=== PATIENT | female | born 1985 | race Caucasian/White ===

== ENCOUNTER 2023-08-24 10:00 | Outpatient (RCR) | payer OTHER, SELFPAY ==
--- NOTE | 2023-10-19 13:02 | PT.OPEX ---
PT [facility] Out[facility] Eval PT [facility] Outpatient Eval Start: 07/27/23 07:56 Freq: Status: Active Protocol: Document 07/27/23 07:58 EMMANUEL (Rec: 07/27/23 07:59 EMMANUEL [id number]) E-signed By Keyana Beckwith PT Physical Therapy Outpatient Evaluation Insurance Information Insurance Name [employer] Medical Diagnosis Stress UI Treating Diagnosis ZOILA lack of muscle coordination Referring ALMA ROSA Prather Subjective Subjective Manuela () presents with diagnosis of ZOILA. Pt started to notice issues with PF weakness after the of her 2nd child in 2016. Pt has noticed increasing weakness over time with majority of her issues/concerns occurring over the past year. Her UI symptoms include leaking with running, jumping, working out, and with an intense sneeze. Does have urinary urges with showering and with leung in the door. Urinates more frequent than every 2 hours. Her bowel function overall is good including daily BMs and ability to fully empty her bowel. Sexual function is also good. Pt does report perimenopausal symptoms including night sweats and heavier menses. Also has issues with vaginal gas while doing yoga (open hip position) . Goals for therapy include strengthening her PFM and to reduce ZOILA symptoms. 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 Assessment Assessment/Impression 38 yo client presents with ZOILA . Pt stands with an ant pelvic tilt. Asymmetry is present along B ilium (R ant), L FRS at L4-L5, and L sacral torsion. Trunk AROM is WFL in all planes. B hip PROM is WFL in B LEs. Mild tightness present with B FABERs - no pain. Tightness is present in R hip flexor. Pain and high tone present with palpation of L iliacus and psoas. Weakness present in B gluteal. Does have difficulty with firing lower abdominals. Symmetrical rib angles with ability diaphragmatically breath. Did not have time to complete assessment of her PF today. Plan is to finish assessment at her next session . Will continue with further skilled PT services including use of therapeutic exercise, therapeutic activities, neuromuscular re-ed, manual therapy, and self cares for symptom reduction. Plan of Care Rehabilitation Potential Good Physical Therapy Goals Short term goals to be achieved in 4 weeks 1. Able to state 4 of 4 urge suppression/bladder retraining strategies to reduce episodes of JIC and leung in the door voiding 2. Able to report voiding intervals of 1X every 2-4 hours, 70% of the time. 3. Pt will demonstrate use of functional PFM/precontraction to eliminate UI during intense sneezing. 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 1. Independent with self-care/ home program to allow for reduction in her UI symptoms and vaginal gas with activities/fitness routine. 2. Pt will report no leaking with sneezing, and jumping. 3. Pt will be able to demonstrate proper mechanics with lifting/carrying, including ability to manage IAP, to reduce pressure on PF with work related activities. Coordination/Communication With Referral Source Treatment Plan/Direct Interventions Joint Mobilization,Manual Therapy,Neuromuscular Re-ed, Self-Care/Home Management, Therapeutic Activities, Therapeutic Exercises Frequency/Duration 1 time a week for up to 12 visits Patient Will Be Discharged From Therapy Completion of LTG(s),Skills Plateau,Independent w/HEP, Independently Progressing Evaluation Billing Untimed Code Treatment Minutes 35 Complexity Moderate Certification Information Physician Comment/Change : Physician NPI Number #
== END 2023-12-22 23:59 | disposition home or self-care (01) ==
PROVIDERS: PCP Student in an Organized Health Care Education/Training Program; Visit Provider Student in an Organized Health Care Education/Training Program
DX: N39.3 Stress incontinence (female) (male) (principal); R27.8 Other lack of coordination; Z51.89 Encounter for other specified aftercare
CPT/HCPCS: 97110; 97140; 97162; 97535

== ENCOUNTER 2024-04-09 11:53 | Emergency (ER) | payer BC, SELFPAY ==
--- OUTSIDE RECORDS SUMMARY | 2024-04-09 11:56 | XMS_ITS | Continuity of Care Document ---
Author Name NwHIN 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
[2024-04-09 11:59] VITALS: BP 112/70; PULSE 78; RESP 16; TEMP 36.9; BMI 21.0
--- NOTE | 2024-04-09 12:42 | ED.GENADULT ---
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 The 2.5 cm laceration is elliptical and shape and nearly removes the affected underlying tissue. Hemostasis was achieved. No other injuries. Related Data Allergies Allergy/AdvReac Type Severity Reaction Status Date / Time No Known Drug Allergies Allergy Verified 04/09/24 12:04 Review of Systems Status of ROS: Reports: 6 or more systems reviewed and unremarkable except as noted in History and below Exam Narrative: Exam Narrative: EXAM GENERAL: Patient appears comfortable and well. EYES: No scleral icterus. LYMPH: No supraclavicular or cervical lymphadenopathy. SKIN: Laceration as noted above right thumb EXT: No dependent lower extremity pedal edema. HEART: Regular rate and rhythm with no murmurs, rubs, or gallops. LUNGS: Clear to auscultation bilaterally with no crackles or wheezes. ABD: Soft, non tender, non distended. PSYCH: Good eye contact, speech is not pressured. Const: Vital Signs, click to edit/add: Vital Signs - 24 hr 04/09/24 11:59 Temperature 98.5 F Pulse Rate [Pulse Oximeter] 78 Respiratory Rate 16 Blood Pressure [Ri ght Upper Arm] 112/70 Oxygen Delivery Me thod Room Air Course Course ED Course: After explaining the risks and benefits of the procedure I did provide a digital block using 1% lidocaine without epinephrine. I then aggressively washed the area of the laceration after which I close the defect with 5 running 4-0 Ethilon sutures. We explained wound care and follow-up. Vital Signs Vital signs: Initial Vital Signs Temperature 98.5 F 04/09/24 11:59 Temperature Source Oral 04/09/24 11:59 Pulse Rate 78 04/09/24 11:59 Respiratory Rate 16 04/09/24 11:59 Blood Pressure 112/70 04/09/24 11:59 Blood Pressure Mean 84 04/09/24 11:59 Oxygen Delivery Method Room Air 04/09/24 11:59 Vital Signs Temperature 98.5 F 04/09/24 11:59 Pulse Rate 78 04/09/24 11:59 Respiratory Rate 16 04/09/24 11:59 Blood Pressure 112/70 04/09/24 11:59 Oxygen Delivery Method Room Air 04/09/24 11:59 Temperature 98.5 F 04/09/24 11:59 Pulse Rate 78 04/09/24 11:59 Respiratory Rate 16 04/09/24 11:59 Blood Pressure 112/70 04/09/24 11:59 Oxygen Delivery Method Room Air 04/09/24 11:59 Discharge Plan Discharge Clinical Impression: Laceration Patient Disposition: Home, Self-Care Condition: Stable Instructions: Laceration (ED) Additional Instructions: Keep wound clean and covered with bacitracin and a bandage. Suture removal in approximately 10 days. Activity Level: No Restrictions Discharge Diet: Regular Follow Up/Referrals: Nilam Christy PA-C [Primary Care Provider] - Stand Alone Forms: MyHealth Info Instructions
--- OUTSIDE RECORDS SUMMARY | 2024-04-09 13:05 | XMS_ITS | Continuity of Care Document ---
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
--- OUTSIDE RECORDS SUMMARY | 2024-04-09 13:05 | XMS_ITS | Clinical Summary ---
Author Organization [facility] Address [place], [place] [address] Care Team Providers Care Financial Reporting Director Name Role Phone Nilam Christy Primary Care Provider [phone] Allergies No known active allergies Medications No known medications Active Problems Problem Noted Date Diagnosed Date Pap smear for cervical cancer screening 01/02/20 Overview (01/25/2024): 12/2022 UNS/HPV Negative 12/2023 NIL/HPV negative Plan: Pap and HPV due 12/2028 Encounters Date Type Department Care Team Description 01/21/2024 4:00 PM CDT Nurse/Clinic Staff Only [facility] [address] [place] [address] Immunization/Injecti on (COVID-19 VACCINE); Immunization/Injecti on 01/21/2024 Travel 01/19/2024 9:25 AM CDT Office Visit [facility] [address] [place] [address] Liza Price MD Physical (38 YEAR OLD PHYSICAL ); Immunization/Injecti on 01/18/2024 Travel from Last 3 Months Immunizations Name Administration Dates Next Due COVID-19 VACCINE SPIKEVAX (M ODERNA 50MCG/0.5ML) 12YO+ PFS 01/21/2024 INFLUENZA, IIV3 PF (AGE >= 6 MO) 01/19/2024 Influenza, IIV4 12/24/2022,05/16/2022 Tdap 01/19/2024 Family History Medical History Relation Name Comments Hyperlipidemia Father Hypertension Father Heart attack Maternal Grandfather Dementia Maternal Grandmother Cancer-prostate Paternal Grandfather Other Paternal Grandfather Covid Lung cancer Paternal Grandmother Did not smoke Asthma Sister Bilateral breast cancer No Family History Cancer-colon No Family History Relation Name Status Comments Father Alive Maternal Grandfather Maternal Grandmother Alive Mother Alive Paternal Grandfather Paternal Grandmother Sister Alive Social History Tobacco Use Types Packs/Day Years Used Date Smoking Tobacco: Never Smokeless Tobacco: Never Tobacco Cessation:Counseling Given: Not Answered Alcohol Use Standard Drinks/Week Comments Not Currently 4 (1 standard drink = 0.6 oz pur e alcohol) Occasional PHQ-2 Answer Date Recorded PHQ-2 TOTAL SCORE 0 01/19/2024 Social Connections Answer Date Recorded Do you often feel lonely or isolated from those around you? 0 11/24/2023 Financial Resource Strain Answer Date R ecorded Difficulty of Paying Living Expenses 3 11/24/2023 Difficulty of Paying Living Expenses Not on file 11/24/2023 Food Insecurity Answer Date Recorded Do you worry your food will run out before you are able to buy more? 1 11/24/2023 Transportation Needs Answer Date Record ed Does lack of transportation keep you from medica l appointments? 1 11/24/2023 Does lack of transportation keep you from work, meetings or getting things that you need? 1 11/24/2023 Housing Stability Answer Date Recorded What is your housing situation today? 1 11/24/2023 Utilities Answer Date Recorded Do you have trouble paying f or utilities (for example, heat, electricity, water, phone)? 1 11/24/2023 Comments No Sex and Gender Information Value Date Recorded Sex Assigned at Not on file Legal Sex Female 12:19 PM CDT Gender Identity Not on file Sexual Orientation Not on file Obstetrics History Last Filed Vital Signs Vital Sign Reading Time Taken Comments Blood Pressure 100/55 01/19/2024 9:23 AM CDT Pulse 55 01/19/2024 9:23 AM CDT Temperature - - Respiratory Rate - - Oxygen Saturation 100% 01/19/2024 9:23 AM CDT Inhaled Oxygen Concentration - - Weight 60.3 kg (133 lb) 01/19/2024 9:23 AM CDT Height 168 cm (5' 6.14) 01/19/2024 9:23 AM CDT Body Mass Index 21.37 01/19/2024 9:23 AM CDT Plan of Treatment Health Maintenance Due Date Last Done Comments HIV for age 15-65 2001 Hepatitis C screening for ag e 18-79 2004 BMI (ht and wt on same day) for age 18+ 01/18/2025 01/19/2024, 12/24/2022 Depression screening for age 12+ 01/20/2025 01/21/2024, 01/19/2024 Pap test for age 21-65 01/18/2029 , 12/24/2022 Tetanus booster 01/18/2034 01/19/2024 Influenza for age 9-49 Completed , 12/24/2022, 05/16/2022 Tdap Completed 01/19/2024 COVID-19 vaccine series Completed 01/21/2024 Pneumococcal series for age 6-49 Aged Out No longer eligible b ased on patient's age to complete this topic Procedures Procedure Name Priority Date/Time Associated Diagnosis Comments TERMITE CONTROL REPRESENTATIVE THIN PREP PAP AND HPV DNA - AGE 25 AND OVER ([employer] Routine 01/19/2024 10:26 AM CDT Cervical cancer screening from Last 3 Months Results * TERMITE CONTROL REPRESENTATIVE THIN PREP PAP AND HPV DNA - AGE 25 AND OVER ([employer] (01/19/2024 10:26 AM CDT) CLINICAL INFORMATION [employer] [facility] Comment:None given LMP [employer] [facility] Comment:UNKNOWN PREV. PAP [employer] [facility] Comment:LAST WAS UNSATISFACT ORY PREV. BX [facility] Comment:UNKNOWN SOURCE TERMITE CONTROL REPRESENTATIVE [facility] Comment:Cervix STATEMENT OF ADEQUACY [facility] Comment: Satisfactory for evaluation. Endocervical/transformation zone component present. Age and/or menstrual status not provided INTERPRETATION/RESU LT [facility] Comment: Cytology Results: Negative for intraepithelial lesion or malignancy. COMMENT [facility] Comment: This Pap test has been evaluated with computer assisted technology. 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 It is not a diagnostic test and is subject to false negative and false positive results. It is most reliable when a satisfactory sample, regularly obtained, is submitted with relevant clinical findings and history, and when the Pap result is evaluated along with historic and current clinical information. HPV HIGH RISK Not Detected NOT DETECTED [facility] Comment: Not Detected High Risk HPV types (16,18,31,33,35,39,45,51,52, 56,58,59,66,68) were not detected. Other HPV types which cause anogenital lesions may be present. The significance of the other types of HPV in malignant processes has not been established. Methodology: Real Time PCR Other (Other) 01/19/2024 10: 26 AM CDT 01/20/2024 9:21 AM CDT Liza Price MD PATHOLOGY/CYTOLOGY Final Result [address] [id number], [address] [id number] from Last 3 Months Insurance [place] [id number] Care Teams Financial Reporting Director Relationship Specialty Start Date End Date Nilam Christy PA [address] [place] [address] [place] [address] PCP - General Physician Alcohol Still Operator 12/24/22
[2024-04-09 13:10] VITALS: BP 112/70; PULSE 78; RESP 16; TEMP 36.9
== END 2024-04-09 13:10 | disposition home or self-care (01) ==
LOC: ED 13:03
PROVIDERS: Emergency Provider Internal Medicine; PCP Student in an Organized Health Care Education/Training Program
DX: S61.011A Laceration without foreign body of right thumb without damage to nail, initial encounter (principal); W26.0XXA Contact with knife, initial encounter
CPT/HCPCS: 12001; 99283